=== PATIENT | female | born 1970 | race Caucasian/White ===

== ENCOUNTER → 2022-09-22 13:28 | Outpatient (CLI) | payer OTHER, SELFPAY ==
--- NOTE | ~2022-09-22 | XR_ITS ---
XR hip LT min 2V 09/22/2022 13:47 Indication: Left hip pain Procedure: 2 views left hip Comparison: No prior studies for comparison. Findings: No fracture, subluxation or dislocation. There are degenerative changes of the left sacroil iac joint and hip. No fracture, subluxation or dislocation. Impression: 1: Mild osteoarthritis of the left hip. Reviewed, dictated and finalized at location L. Impression: 1: Mild osteoarthritis of the left hip.
== END ==
PROVIDERS: PCP Family Medicine; Visit Provider Family Medicine
DX: M16.12 Unilateral primary osteoarthritis, left hip (principal)
CPT/HCPCS: 73502